=== PATIENT | female | born 1950 | race Caucasian/White ===

== ENCOUNTER → 2018-08-14 | Outpatient (CLI) | payer OTHER | LOC: CAT 13:07 | DX: Z13.6 Encounter for screening for cardiovascular disorders (principal); E78.00 Pure hypercholesterolemia, unspecified ==

== ENCOUNTER → 2020-02-25 | Outpatient (CLI) | payer OTHER, BC | LOC: SJCVC 11:30 | PROVIDERS: ATTEND Internal Medicine Cardiovascular Disease | DX: R00.1 Bradycardia, unspecified (principal); R94.31 Abnormal electrocardiogram [ECG] [EKG]; I25.10 Atherosclerotic heart disease of native coronary artery without angina pectoris; I73.9 Peripheral vascular disease, unspecified; I65.23 Occlusion and stenosis of bilateral carotid arteries; I10 Essential (primary) hypertension; E78.00 Pure hypercholesterolemia, unspecified; F17.210 Nicotine dependence, cigarettes, uncomplicated; Z82.49 Family history of ischemic heart disease and other diseases of the circulatory system; Z79.899 Other long term (current) drug therapy ==

== ENCOUNTER → 2020-11-10 | Outpatient (CLI) | payer OTHER, BC | LOC: SJCVCIMAG 06:46 | PROVIDERS: ATTEND Internal Medicine Cardiovascular Disease | DX: R00.1 Bradycardia, unspecified (principal); I25.10 Atherosclerotic heart disease of native coronary artery without angina pectoris; R94.31 Abnormal electrocardiogram [ECG] [EKG]; R06.00 Dyspnea, unspecified; E78.5 Hyperlipidemia, unspecified; I10 Essential (primary) hypertension; I73.9 Peripheral vascular disease, unspecified; Z79.899 Other long term (current) drug therapy; Z86.73 Personal history of transient ischemic attack (TIA), and cerebral infarction without residual deficits; Z87.891 Personal history of nicotine dependence ==

== ENCOUNTER → 2020-11-11 | Outpatient (CLI) | payer OTHER, BC | LOC: SJCVC 09:33 | PROVIDERS: ATTEND Internal Medicine Cardiovascular Disease | DX: Z01.818 Encounter for other preprocedural examination (principal); R94.31 Abnormal electrocardiogram [ECG] [EKG]; I25.10 Atherosclerotic heart disease of native coronary artery without angina pectoris; R93.1 Abnormal findings on diagnostic imaging of heart and coronary circulation; I73.9 Peripheral vascular disease, unspecified; I65.23 Occlusion and stenosis of bilateral carotid arteries; E78.00 Pure hypercholesterolemia, unspecified; I10 Essential (primary) hypertension; F17.210 Nicotine dependence, cigarettes, uncomplicated; Z72.89 Other problems related to lifestyle; Z79.899 Other long term (current) drug therapy ==

== ENCOUNTER → 2020-11-25 | Outpatient (CLI) | payer OTHER, BC ==
[~2020-11-25] VITALS: Ht 157.5 cm; Wt 59.0 kg
[~2020-11-25] MED LIST: BYSTOLIC10 MG PO; LIPITOR 20 MG T20 M1 PO; MULTI VITAMIN1 EACH PO; PLAVIX 75 MG TA75 MG PO; VALIUM10 MG PO; VITAMIN D3-ALO1 EACH PO
[2020-11-25 07:24] VITALS: BP 112/48
--- NOTE | 2020-11-25 13:23 | CATHLAB ---
[facility] [place] [address] INVASIVE PROCEDURE REPORT Name: CODIE HORN [id number] Admission: 11/25/20 Attend Phys: Aron Jones MD, Discharge: Date of : 48 Report #: [id number] THIS REPORT FOR: cc: Mike Moy MD, Neal A. MD Mancuso, Gerald M. MD [facility] ~ APPROVED REPORT Study performed: 11/25/2020 07:33:38 Patient Details Patient Status: Out-Patient Room #: The patient is a 70 year-old female Event Personnel Aron Jones Museum Specialist, Justa Woodward RN RN, Olga Ba Monitor, Keri Dior RTR, Patrice Bradshaw Jordan RTR Production Line Technician Procedures Performed Art Access - R femoral artery* Left Heart Cath w/or w/o Coronaries [id number] [facility] Aortogram Abdominal Peripheral Angio 137184 Hemostasis w/ Mynx 71622 Initial Mod Sed Same Phys/QHP Gr5y 021399 83520 Mod Sed Same Phys/QHP Ea 809899 Indication Chest pain Procedure Narrative The Right Groin^ was infiltrated with 1% Lidocaine subcutaneous anesthesia. A PINNACLE 6FR Sheath #[id number] sheath was inserted into the RFA 6F^. Coronary angiography was performed using coronary diagnostic catheters. The right coronary system was accessed and visualized with a jr4 catheter. The left coronary system was accessed and visualized with a jl4 catheter. The left ventricle was accessed and visualized with a angle pig catheter. There was no hematoma. Intraoperative Conscious Sedation Sedation start time: 847 Case end Time: 914 Fentanyl 100 mcg Versed 1 mg Fluoro Time: 0.90 minutes [facility] [email or web address] [address] INVASIVE PROCEDURE REPORT Name: KORYCODIE LAGUERRE [id number] Admission: 11/25/20 Attend Phys: Aron Jones, Discharge: Date of : 48 Report #: [id number] Dose: DAP 1645.90 cGycm2 217 mGy Contrast Type and Amount: Omnipaque 85 ml Hemodynamics The aortic pressure is 136/52 mmHg with a mean of 85 mmHg. The left ventricular pressure is 153/6 mmHg with a mean of mmHg. The left ventricular end diastolic pressure is 18 mmHg. Conclusion #1. Left main mildly calcified widely patent. Giving rise to LAD and circumflex. #2 LAD proximal calcification with mild irregularity no occlusive disease this extends around the apex. 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 #4 dominant right coronary also with proximal calcification with mild irregularity no occlusive disease #5 normal left ventricular size and systolic function EF 60%. #6 abdominal aortogram revealed mild aortic ectasia distally but no definite aneurysm brisk flow is noted. Recommendations and plan: Continue aggressive risk factor modification no indication for coronary intervention. <ELECTRONICALLY SIGNED> By: Aron Jones MD, [facility] 11/25/20 1323 1323 1323 Aron Jones MD, FACC /INF
--- NOTE | 2020-11-25 16:23 | EKG ---
[place] [address] [address] [facility] [place] [address] ELECTROCARDIOGRAM REPORT Name: CODIE HORN Room #: REG [facility]#: [id number] Admission: 11/25/20 Attend Phys: Aron Jones MD, Discharge: Date of : 48 Report #: [id number] [facility] Test Date: 2020-11-25 Test Time: 07:37:53 Pat Name: CODIE HORN Department: Room: Gender: F Observation Nurse: SBUL : 1950 Requested By: Aron Jones Order Number: [id number] MD: Lewis Wall Measurements Intervals [place] Rate: 50 P: 77 AK: 132 QRS: 69 QRSD: 95 T: 61 QT: 470 QTc: 429 Interpretive Statements Sinus rhythm Anterolateral infarct, age indeterminate No previous ECG available for comparison Electronically Signed On 11-25-2020 16:23:33 CDT by Lewis Wall [email or web address] <ELECTRONICALLY SIGNED> By: Lewis Wall MD, [facility] 11/25/20 1623 0737 0737 Lewis Wall MD, FACC /EPI
== END | disposition home or self-care (01) ==
LOC: CATH 06:37
PROVIDERS: ATTEND Internal Medicine Cardiovascular Disease
DX: R07.9 Chest pain, unspecified (principal); I25.10 Atherosclerotic heart disease of native coronary artery without angina pectoris; I77.811 Abdominal aortic ectasia; I10 Essential (primary) hypertension; E78.00 Pure hypercholesterolemia, unspecified; I73.9 Peripheral vascular disease, unspecified; F17.210 Nicotine dependence, cigarettes, uncomplicated; Z98.890 Other specified postprocedural states; Z79.899 Other long term (current) drug therapy

== ENCOUNTER → 2020-12-11 | Outpatient (CLI) | payer OTHER, BC | LOC: SJCVCIMAG | PROVIDERS: ATTEND Internal Medicine Cardiovascular Disease | DX: R94.31 Abnormal electrocardiogram [ECG] [EKG] (principal); I65.23 Occlusion and stenosis of bilateral carotid arteries; I25.10 Atherosclerotic heart disease of native coronary artery without angina pectoris; I10 Essential (primary) hypertension; I73.9 Peripheral vascular disease, unspecified; E78.5 Hyperlipidemia, unspecified; E78.00 Pure hypercholesterolemia, unspecified; F17.210 Nicotine dependence, cigarettes, uncomplicated; Z86.16 Personal history of COVID-19; Z79.899 Other long term (current) drug therapy; Z72.89 Other problems related to lifestyle ==

== ENCOUNTER → 2021-06-14 | Outpatient (CLI) | payer OTHER, BC | LOC: SJCVCIMAG 11:02 | PROVIDERS: ATTEND Internal Medicine Cardiovascular Disease | DX: I70.202 Unspecified atherosclerosis of native arteries of extremities, left leg (principal); R94.31 Abnormal electrocardiogram [ECG] [EKG]; I25.10 Atherosclerotic heart disease of native coronary artery without angina pectoris; I73.9 Peripheral vascular disease, unspecified; I65.23 Occlusion and stenosis of bilateral carotid arteries; I10 Essential (primary) hypertension; E78.00 Pure hypercholesterolemia, unspecified; F17.210 Nicotine dependence, cigarettes, uncomplicated; Z86.16 Personal history of COVID-19; Z72.89 Other problems related to lifestyle; Z79.899 Other long term (current) drug therapy; Z95.820 Peripheral vascular angioplasty status with implants and grafts ==